=== PATIENT | female | born 2000 | race American Indian/Alaskan Native ===

== ENCOUNTER 2020-03-17 21:23 | Outpatient (CLI) | payer MEDICAID ==
[2020-03-17 21:51] VITALS: BP 118/75
== END 2020-03-17 23:35 | disposition home or self-care (01) ==
LOC: TRG 21:23 → APU 21:25 → TRG 23:35
PROVIDERS: ATTEND Obstetrics & Gynecology
DX: O47.1 False labor at or after 37 completed weeks of gestation (principal); Z3A.38 38 weeks gestation of pregnancy
CPT/HCPCS: 59025